=== PATIENT | female | born 1990 | race African-American/Black ===

== ENCOUNTER 2017-08-10 09:55 | Emergency (ER) | payer MEDICAID, OTHER ==
[2017-08-10 11:52] LABS: Bilirubin Negative (Negative); Blood, Urine Trace (Negative); Clarity Clear (Clear); Glucose, Urine (Dipstick) Negative (Negative); Leukocyte Negative (Negative); Nitrite Negative (Negative); Protein, Urine (Dipstick) Negative (Neg-Trace)
[2017-08-10 11:55] LABS: Bacteria/HPF Rare-Few HPF (None Seen); RBC/HPF 0-3 HPF (0-3); Squamous Epithelial 0-3 HPF (0-3); WBC/HPF 0-3 HPF (0-3)
[2017-08-10 11:57] LABS: Pregnancy Test - Urine (BHCG) Negative (Negative); Pregu Control Background? CLEAR/WHITE (CLR/WHITE); Pregu Control Bar Appear? YES (CONTROL BAR)
[2017-08-10 11:58] LABS: Wet Prep Clue Cells Clue Cells Absent (None Seen); Wet Prep Trichomonas Trichomonas Absent (None Seen)
== END 2017-08-10 12:15 | disposition home or self-care (01) ==
LOC: NAV ERS 09:55
DX: N89.8 Other specified noninflammatory disorders of vagina (principal)
CPT/HCPCS: 81003; 81015; 81025; 87210; 99283

== ENCOUNTER 2017-08-18 00:47 | Emergency (ER) | payer MEDICAID | END 2017-08-18 01:14 | disposition home or self-care (01) | LOC: NAV ERS 00:47 | DX: L03.011 Cellulitis of right finger (principal) | CPT/HCPCS: 99283 ==

== ENCOUNTER 2017-12-23 19:49 | Emergency (ER) | payer SELFPAY | END 2017-12-23 20:25 | disposition home or self-care (01) | LOC: NAV ERS 19:49 | DX: K02.9 Dental caries, unspecified (principal); K03.81 Cracked tooth | CPT/HCPCS: 99282 ==

== ENCOUNTER 2018-01-22 23:25 | Emergency (ER) | payer SELFPAY ==
--- NOTE | 2018-01-23 00:37 | RAD ---
LEFT HAND FOURTH DIGIT THREE VIEWS: HISTORY: Injury. Pain. Shut door on hand. FINDINGS: No fracture. No cortical irregularity. No periosteal reaction. Joint spaces are preserved. IMPRESSION: No posttraumatic change. POS: JOHN
== END 2018-01-22 23:59 | disposition home or self-care (01) ==
LOC: NAV ERS 23:25
DX: S60.042A Contusion of left ring finger without damage to nail, initial encounter (principal); Z79.899 Other long term (current) drug therapy; W23.0XXA Caught, crushed, jammed, or pinched between moving objects, initial encounter

== ENCOUNTER 2018-05-16 20:39 | Emergency (ER) | payer SELFPAY ==
[2018-05-16 20:56] LABS: Bilirubin Negative (Negative); Blood, Urine Small (Negative); Clarity Clear (Clear); Glucose, Urine (Dipstick) Negative (Negative); Leukocyte Trace (Negative); Nitrite Negative (Negative); Protein, Urine (Dipstick) Negative (Neg-Trace)
[2018-05-16 20:58] LABS: Bacteria/HPF 1+ HPF (None Seen); RBC/HPF 0-3 HPF (0-3); WBC/HPF None Seen HPF (0-3)
[2018-05-16 21:00] LABS: Pregnancy Test - Urine (BHCG) Negative (Negative); Pregu Control Background? CLEAR/WHITE (CLR/WHITE); Pregu Control Bar Appear? YES (CONTROL BAR)
== END 2018-05-16 21:14 | disposition home or self-care (01) ==
LOC: NAV ERS 20:39
DX: R30.0 Dysuria (principal)
CPT/HCPCS: 81003; 81015; 81025; 87077; 87086; 87186; 99283

== ENCOUNTER 2018-09-03 16:30 | Emergency (ER) | payer SELFPAY | END 2018-09-03 17:25 | disposition home or self-care (01) | LOC: NAV ERS 16:30 | DX: T14.8XXA Other injury of unspecified body region, initial encounter (principal); L29.9 Pruritus, unspecified | CPT/HCPCS: 99282 ==